=== PATIENT | male | born 1975 | race Caucasian/White ===

== ENCOUNTER → 2018-03-10 | Outpatient (CLI) | payer BC ==
--- NOTE | 2018-03-10 16:09 | XR ---
Limited cervical spine HISTORY: Right shoulder pain 3 views of the cervical spine There is loss of disc height at C5-6 with associated spondylosis. Loss of normal cervical lordosis. P revertebral soft tissues are normal. Cervical vertebral bodies show preserved height, alignment, bone mineralization. IMPRESSION: Degenerative disc disease.
== END | disposition home or self-care (01) ==
LOC: RADXRYALE 12:55
PROVIDERS: ATTEND Nurse Practitioner Family
DX: M50.30 Other cervical disc degeneration, unspecified cervical region (principal); M25.511 Pain in right shoulder
CPT/HCPCS: 72040

== ENCOUNTER → 2018-03-31 | Outpatient (CLI) | payer BC ==
--- NOTE | 2018-04-01 15:20 | MR ---
EXAMINATION TYPE: MR cervical spine wo con DATE OF EXAM: 03/31/2018 COMPARISON: None HISTORY: Neck pain TECHNIQUE: Multiplanar, multisequence images of the cervical spine were acquired. The cervical vertebra have normal alignment. There is decreased signal in disc space narrowing at C5- 6. There is small posterior and anterior cervical disc herniation at C5-6. Spinal canal measures 7.5 mm at C5-6. There is no evidence of cervical cord edema. The brainstem appears intact. There is no ev idence of a fracture. I see no focal bony destructive process. Disc herniation at C5-6 is more to the right side. There is neural foraminal impingement. IMPRESSION: There is posterior central and right-sided C5-6 cervical disc herniation with neural foraminal imping ement and lateral recess stenosis. No fracture.
== END | disposition home or self-care (01) ==
LOC: RADMRIMAIN 21:38
PROVIDERS: ATTEND Family Medicine
DX: M48.02 Spinal stenosis, cervical region (principal); M50.222 Other cervical disc displacement at C5-C6 level
CPT/HCPCS: 72141

== ENCOUNTER → 2019-02-05 | Outpatient (CLI) | payer BC ==
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
== END | disposition home or self-care (01) ==
LOC: RADMRIMAIN 21:01
PROVIDERS: ATTEND Orthopaedic Surgery
DX: M19.012 Primary osteoarthritis, left shoulder (principal)

== ENCOUNTER → 2020-04-17 | Outpatient (CLI) | payer OTHER ==
--- NOTE | 2020-04-17 18:18 | MR ---
EXAMINATION TYPE: MR knee RT wo con DATE OF EXAM: 04/17/2020 COMPARISON: None. HISTORY: Right knee pain and swelling x 10 months TECHNIQUE: Multiplanar, multisequence imaging of the right knee is performed without IV contrast. FINDINGS: MEDIAL MENISCUS: Anterior and posterior horns are intact without tear. LATERAL MENISCUS: Anterior and posterior horns are intact without tear. CRUCIATE LIGAMENTS: The anterior and posterior cruciate ligaments are intact and unremarkable. COLLATERAL LIGAMENTS: The medial collateral ligament and lateral collateral ligament complex are inta ct and unremarkable. EXTENSOR MECHANISM: Visualized quadriceps and patellar tendons are intact. EFFUSION: No significant suprapatellar joint effusion. POPLITEAL CYST: No popliteal/[place] cyst. TRICOMPARTMENT SPACES: Mild to moderate narrowing patellofemoral compartment. Mild to moderate tricom partment joint space spurring. CARTILAGE: No significant chondromalacia patella. Tricompartment articular cartilage maintained. BONE MARROW SIGNAL: Regular lesion of low T1 and T2 signal posterior lateral femoral condyle favored benign. OTHER: No additional significant abnormality is appreciated. IMPRESSION: No meniscal or ligamentous tear is seen. Mild to moderate degenerative changes are apprec iated greatest patellofemoral compartment.
--- NOTE | 2020-04-17 18:27 | MR ---
EXAMINATION TYPE: MR thoracic spine wo con DATE OF EXAM: 04/17/2020 COMPARISON: MRI cervical spine March 31, 2018 HISTORY: Back Pain X 10 months TECHNIQUE: Multiplanar, multisequence imaging of thoracic spine is performed without contrast FINDINGS: Spinal cord shows normal caliber and signal as it courses the thoracic spine. Coronal image s show dextroconvex scoliosis or scoliotic curvature centered mid thoracic spine. Vertebral body heig hts and alignment are satisfactory. Multilevel disc desiccation with disc space heights are maintaine d. Mild multilevel anterior spurring. Bone marrow signal intensity preserved. There are posterior dis c herniations effacing anterior thecal sac at T2-T3 and T3-T4 levels sagittal image 9. There are unco vertebral facet degenerative changes effacing posterolateral thecal sac with tiny disc herniations ef face the anterior thecal sac at T9-T10 and T10-T11 levels. Posterior facet degenerative change efface s the thecal sac T7-T8 level. Localizer shows artifact from surgical change C5-C6 level. Review of axial images confirm tiny central disc protrusion slightly effaces the anterior thecal sac at T2-T3 and to a slightly greater degree T3-T4 level axial image 12 series 701. There are additiona l tiny right paracentral disc protrusions minimally effacing the anterior thecal sac T4-T5 and T5-T6 levels. Most prominent findings are uncovertebral facet degenerative changes and ligamentum flavum hypertroph y significantly effacing posterior lateral thecal sac at T9-T10 and T10-T11 levels on axial images 11 and 12 and 7 and 8 series 601, findings greatest at T9-T10 and T10 level up to the posterior lateral margin of the spinal cord which is slightly flattened. There are additional uncovertebral facet dege nerative changes at T11-T12 level mildly effacing left posterior lateral thecal sac axial image 4. Visualized upper abdomen and thorax show no suspicious abnormality. IMPRESSION: Multilevel [id number] degenerative changes as detailed above.
== END ==
LOC: RADMRIMAIN 15:49
PROVIDERS: ATTEND Neurological Surgery
DX: M51.24 Other intervertebral disc displacement, thoracic region (principal); M17.11 Unilateral primary osteoarthritis, right knee; M47.814 Spondylosis without myelopathy or radiculopathy, thoracic region
CPT/HCPCS: 72146